=== PATIENT | female | born 1960 | race Caucasian/White ===

== ENCOUNTER 2017-01-09 08:37 | Inpatient (IN) | payer OTHER, MEDICARE ==
[2016-12-28 12:58] VITALS: BMI 32.0
--- NOTE | 2016-12-28 13:33 | PAT Medication Instructions ---
Service Date Dec 28, 2016. Current Home Medication List Atenolol (Tenormin), 25 MG PO QAM Celecoxib (CeleBREX), 200 MG PO QAM Cholecalciferol (Vitamin D3), 1 TAB PO QAM Fluoxetine (Prozac), 20 MG PO QAM Hydrocodone/Acetaminophen 10MG/325MG (Dana 10MG/325MG), 1 TAB PO Q4H PRN for Pain Medication Instructions For Your Scheduled Surgery - Hold the following medications the morning of surgery: Celecoxib (CeleBREX), 200 MG PO QAM (otherwise okay to continue per surgeon) Cholecalciferol (Vitamin D3), 1 TAB PO QAM - Take the following medications the morning of surgery with a sip of water OTHERWISE NOTHING TO EAT OR DRINK AFTER MIDNIGHT: Atenolol (Tenormin), 25 MG PO QAM Hydrocodone/Acetaminophen 10MG/325MG (Dana 10MG/325MG), 1 TAB PO Q4H PRN for Pain (may take if needed up to 4 hours prior to surgery if needed) Fluoxetine (Prozac), 20 MG PO QAM - Take the following medications as scheduled the night before surgery: Hydrocodone/Acetaminophen 10MG/325MG (Dana 10MG/325MG), 1 TAB PO Q4H PRN for Pain If you have any questions please call us at [phone] or [phone] or [phone]
[2016-12-28 14:39] LABS: BASO % 0.3 %; BASO ABS # 0.02 K/uL (0-0.2); COMPLETE YES; EOS % 0.9 %; HEMATOCRIT 42.4 % (37-47); LYMPH % 33.2 %; LYMPH ABS # 2.56 K/uL (1.2-3.4); MEAN CELL VOLUME 91.4 fL (80-100); MEAN CORPUSCULAR HEMOGLOBIN 30.8 pg (25-34); MEAN CORPUSCULAR HGB CONC 33.7 g/dl (32-36); MEAN PLATELET VOLUME 9.6 fL (7.4-10.4); MONO % 7.3 %; NEUT % 58.3 %; PLATELET COUNT 275 K/uL (130-400); RED BLOOD COUNT 4.64 M/uL (4.2-5.4); WHITE BLOOD COUNT 7.72 K/uL (4.8-10.8)
[2016-12-28 14:58] LABS: URINE APPEARANCE CLEAR (CLEAR); URINE COLOR DK YELLOW; URINE EPITHELIAL CELL AUTO >30 /lpf (0-5); URINE NITRITE NEG (NEG); URINE SPECIFIC GRAVITY 1.042 (1.000-1.030); UROBILINOGEN NEG (NEG); ZZUR CULT IF INDIC CLEAN CATCH NO
[2016-12-28 15:00] LABS: PARTIAL THROMBOPLASTIN RATIO 1.1; PROTHROMBIN TIME (PATIENT) 10.2 SECONDS (9.0-12.0)
[2016-12-28 15:08] LABS: MANUAL MICROSCOPIC REQUIRED? NO; REVIEW REQ? YES
[2016-12-28 15:10] LABS: URINE BILIRUBIN NEG (NEG)
[2016-12-28 15:12] LABS: BUN/CREATININE RATIO 23.8 (10-20); CREATININE 1.1 mg/dl (0.60-1.20); POTASSIUM 3.9 mmol/L (3.5-5.1)
[2016-12-28 16:07] LABS: URINE MUCUS PRESENT (NONE PRSENT)
[2016-12-28 16:47] LABS: LYME DISEASE AB IGM NEG (NEG)
[2016-12-28 16:51] LABS: LYME DISEASE AB IGG NEG (NEG)
--- NOTE | 2016-12-28 17:18 | DIAGNOSTIC IMAGING REPORT ---
CHEST PREADMISSION(PA/LAT) CLINICAL HISTORY: Preoperative evaluation COMPARISON STUDY: Chest radiograph September 12, 2012. FINDINGS: Lung volumes are normal. There is no pneumothorax or pleural effusion. There is no evidence of pulmonary edema. Cardiac size is at the upper limits of normal. Lumbar spine fusion hardware is incidentally noted. There are cholecystectomy clips. IMPRESSION: No acute cardiopulmonary findings. Electronically signed by: Guevara Jiang M.D. 12/28/2016 5:17 PM Dictated Date/Time: 12/28/2016 5:11 PM
[2016-12-29 05:51] LABS: ESTIMATED AVERAGE GLUCOSE 126 mg/dl; HA1C FLAG Normal (Normal)
--- NOTE | 2017-01-08 10:22 | History and Physical ---
History & Physical Date & Time of Service: Jan 08, 2017 at 10:17 Chief Complaint: Left Shoulder Degenerative Joint Disease Primary Care Physician: Kevin Elizondo D.O. History of Present Illness Source: patient Chronic left shoulder pain, failed conservative treatment. 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 Social History Smoking Status: Never Smoker Alcohol Use: occasionally Drug Use: none Immunizations History of Influenza Vaccine: Yes History of Tetanus Vaccine?: Yes History of Pneumococcal: No History of Hepatitis B Vaccine: Yes Allergies Coded Allergies: Hydromorphone (Unverified Allergy, Intermediate, itchy, vomiting, 12/28/16) Oxycodone (Verified Allergy, Unknown, ITCHING, 12/28/16) Home Medications Scheduled Atenolol (Tenormin), 25 MG PO QAM Celecoxib (CeleBREX), 200 MG PO QAM Cholecalciferol (Vitamin D3), 1 TAB PO QAM Fluoxetine (Prozac), 20 MG PO QAM Scheduled PRN Hydrocodone/Acetaminophen 10MG/325MG ([place] 10MG/325MG), 1 TAB PO Q4H PRN for Pain Review of Systems Musculoskeletal: + joint pain, + muscle pain (ledt shoulder pain ) Physical Exam General Appearance: WD/WN, no apparent distress Head: normocephalic, atraumatic Eyes: normal inspection, PERRL, EOMI ENT: normal ENT inspection Respiratory/Chest: lungs clear Cardiovascular: regular rate, rhythm Abdomen/GI: normal bowel sounds, non tender Left shoulder FROM w pain, + crepitation, 4+/5 strength, AC tenderness, N/V + Impression Assessment and Plan Left shoulder OA Advanced Directives Existing Living Will: No Existing Power of [employer] Manager: No Note Plan for Left shoulder TSA, DCE.
[~2017-01-09] VITALS: Ht 162.6 cm; Wt 85.0 kg
[~2017-01-09 08:37] MED LIST: ACETAMINOPHEN 500 MG TAB PO SCH; ATEN-173 PO; CEFAZOLIN 2000 MG/60 ML D5W 60 ML IV SCH; CHOL20007 PO; CLB/200 PO; CeleBREX 200 MG CAP PO SCH; DEXAMETHASONE 4 MG TAB PO SCH; DEXAMETHASONE SOD INJ 4 MG/ML VIAL ONE; FAMOTIDINE 20 MG TAB PO SCH; FENTANYL CITRATE INJ 50 MCG/1 ML 2 ML VIAL ONE; FLUO20CA35 PO; GABAPENTIN 300 MG CAP PO SCH; GLYCOPYRROLATE INJ 0.2 MG/ML VIAL ONE; HYDR-4079 PO; LACTATED RINGER'S 1000ML 1,000 ML IV SCH; LACTATED RINGER'S 1000ML IV SCH; LIDOCAINE HCL 2% 2 ML VIAL (20MG/ML) ONE; METOCLOPRAMIDE HCL 10 MG TAB PO SCH; MIDAZOLAM HCL 1 MG/ML 2ML VIAL ONE; NEOSTIGMINE METHYLSULFATE 5 MG/5 ML SYR ONE; ONDANSETRON INJ 2 MG/ML 2 ML VIAL ONE; PROPOFOL IV EMULSION 10 MG/ML 20 ML VIAL IV ONE; ROCURONIUM BROMIDE 10 MG/ML 5 ML VIAL ONE; ROPIVACAINE 0.5% 5 MG/ML 30 ML VIAL ONE
[2017-01-09 08:58] VITALS: BP 135/90; PULSE 57; TEMP 36.6; Ht 162.6 cm; Wt 85.0 kg
--- NOTE | 2017-01-09 09:17 | History & Physical Bridge Note ---
H&P Re-Evaluation Bridge Note: I have examined the patient, reviewed the History & Physical and in the interval since the performance of the History & Physical I have noted the following changes of clinical significance: No changes noted
[2017-01-09] MEDS ORDERED: ONDANSETRON INJ 2 MG/ML 2 ML VIAL ONE (09:52)
[2017-01-09] MEDS ORDERED: ROCURONIUM BROMIDE 10 MG/ML 5 ML VIAL ONE ×2 (09:52→12:36)
[2017-01-09] MEDS ORDERED: LIDOCAINE HCL 2% 2 ML VIAL (20MG/ML) ONE (09:52)
[2017-01-09] MEDS ORDERED: GLYCOPYRROLATE INJ 0.2 MG/ML VIAL ONE ×2 (09:52→12:26)
[2017-01-09] MEDS ORDERED: PROPOFOL IV EMULSION 10 MG/ML 20 ML VIAL IV ONE (09:52)
[2017-01-09] MEDS ORDERED: MIDAZOLAM HCL 1 MG/ML 2ML VIAL ONE (09:52)
[2017-01-09] MEDS ORDERED: DEXAMETHASONE SOD INJ 4 MG/ML VIAL ONE (09:52)
[2017-01-09] MEDS ORDERED: FENTANYL CITRATE INJ 50 MCG/1 ML 2 ML VIAL ONE ×3 (09:52→15:06)
[2017-01-09] MEDS ORDERED: NEOSTIGMINE METHYLSULFATE 5 MG/5 ML SYR ONE (09:52)
[2017-01-09] MEDS ORDERED: HYDROmorphone INJ 2 MG/ML SYR/VIAL IV PRN ×2 (10:00→11:00)
[2017-01-09] MEDS ORDERED: EpHEDrine SULFATE INJ 50 MG/ML AMP IV PRN ×2 (10:00→11:00)
[2017-01-09] MEDS ORDERED: PHENYLEPHRINE 100MCG/ML 5ML SYR IV PRN ×2 (10:00→11:00)
[2017-01-09] MEDS ORDERED: ONDANSETRON INJ 2 MG/ML 2 ML VIAL IV PRN ×3 (10:00→14:45)
[2017-01-09] MEDS ORDERED: ATROPINE SULFATE 0.1 MG/ML 5ML SYR IV PRN ×2 (10:00→11:00)
[2017-01-09] MEDS ORDERED: BACITRACIN 50000 UNIT VIAL ONE (10:55)
[2017-01-09] MEDS ORDERED: EpINEphrine INJ 1MG/ML AMP 1 MG/ML AMP ONE (10:55)
[2017-01-09] MEDS ORDERED: EpHEDrine SULFATE 50MG/5ML SYR ONE (12:31)
[2017-01-09] MEDS ORDERED: SODIUM CHLORIDE 0.9% INJ 10 ML VIAL ONE (12:55)
[2017-01-09] MEDS ORDERED: EpHEDrine SULFATE INJ 50 MG/ML AMP ONE (12:55)
[2017-01-09] MEDS: EpINEphrine HCL INJ 1 MG/ML 5ML SYRINGE ONE ×2 (12:59→13:16)
[2017-01-09] MEDS ORDERED: HYDROCODONE/ACETAMI 10/325 TAB PO PRN (14:45)
[2017-01-09] MEDS ORDERED: SOD PHOSPHATE/SOD BIPHOSPHATE ENEMA 132 ML BTL PR PRN (14:45)
[2017-01-09] MEDS ORDERED: MoRPHine SULFATE 2 MG/ML CARP IV PRN ×2 (14:45→15:30)
[2017-01-09] MEDS ORDERED: BISACODYL 10 MG SUPP PR PRN (14:45)
[2017-01-09] MEDS ORDERED: ZOLPIDEM TARTRATE 5 MG TAB PO PRN (14:45)
[2017-01-09] MEDS ORDERED: NALOXONE HCL 0.4 MG/1 ML VIAL/CARP IV PRN (14:45)
[2017-01-09] MEDS ORDERED: MAGNESIUM HYDROXIDE SUSP 30 ML UDC PO PRN (14:45)
[2017-01-09] MEDS ORDERED: NURSING VERBAL MED ORDER ONE (15:15)
--- NOTE | 2017-01-09 15:22 | DIAGNOSTIC IMAGING REPORT ---
LEFT SHOULDER MIN 2 VIEWS ROUTINE HISTORY:56 yearsFemale[age] shoulder surgery COMPARISON: Chest radiograph 12/28/2016 TECHNIQUE: Portable neutral and Y views of the left shoulder were obtained postoperatively FINDINGS: Status post left shoulder hemiarthroplasty. Skin rashel overlie the surgical site. There has been partial resection of the distal left clavicle. Expected postsurgical soft tissue swelling and deep tissue air seen about the shoulder. No periprosthetic fracture or retained radiopaque foreign body identified. IMPRESSION: Status post left shoulder arthroplasty and distal left clavicular resection. The above report was generated using voice recognition software. It may contain grammatical, syntax or spelling errors. Electronically signed by: Honorio Gill M.D. 01/09/2017 3:21 PM Dictated Date/Time: 01/09/2017 3:19 PM
[2017-01-09] MEDS ORDERED: FENTANYL CITRATE INJ 50 MCG/1 ML 2 ML VIAL IV PRN (15:30)
--- NOTE | 2017-01-09 15:43 | Anesthesiology Progress Note ---
Anesthesia Post Op Note Date & Time Jan 09, 2017 at 15:42 Vital Signs Pain Intensity: 4 Vital Signs Past 12 Hours Date Time Temp Pulse Resp B/P (MAP) Pulse Ox O2 Delivery O2 Flow Rate FiO2 01/09/17 15:35 36.6 69 16 126/66 94 Nasal Cannula 2 01/09/17 15:25 69 16 96/66 94 Nasal Cannula 2 01/09/17 15:15 66 18 112/73 97 Mask 8 01/09/17 15:05 66 17 123/66 97 Mask 8 01/09/17 14:55 68 15 115/68 95 Mask 8 01/09/17 14:46 36.2 78 16 119/65 95 Mask 8 01/09/17 08:58 36.6 57 18 135/90 Room Air Notes Mental Status: alert / awake / arousable, participated in evaluation Pt Amnestic to Procedure: Yes Nausea / Vomiting: adequately controlled Pain: adequately controlled Airway Patency, RR, SpO2: stable & adequate BP & HR: stable & adequate Hydration State: stable & adequate Anesthetic Complications: no major complications apparent
[2017-01-09 16:22] VITALS: BP 111/67; PULSE 65; TEMP 36.6; O2SAT 97
[2017-01-09] MEDS: D5W AND 1/2NSS + 20MEQ KCL 1,000 ML IV SCH (16:32)
[2017-01-09 16:57] VITALS: BP 108/66; PULSE 76; TEMP 36.8; O2SAT 95
--- NOTE | 2017-01-09 17:39 | [facility] Operative Report ---
Operative Report Operative Date Jan 09, 2017. Pre-Operative Diagnosis left shoulder osteoarthritis,glenohumeral and acj Post-Operative Diagnosis same,biceps tendinopathy and bicipital groove spurs Procedure(s) Performed left total shoulder replacement and distal clavicle excision Surgeon Dr. Leo Rizvi [employer] Tester Surgeon(s) Dieudonne Villa PA-C Estimated Blood Loss 50ML Findings End-stage glenohumeral osteoarthritis with large osteophytes bicipital groove bone spurs biceps tendinopathy intact rotator cuff oblique acromioclavicular joint with arthritis and some eccentric wear posterior glenoid. Specimens A. humeral head B. Distal Clavicle Drains 2 hemovac Anesthesia general and regional Complication(s) None Disposition Recovery Room / PACU Indications End-stage osteoarthritis shoulder left Description of Procedure The patient was taken to the operating room and anesthetized under a general and regional block anesthesia. A towel roll was placed under the medial border of the scapula of the left shoulder. The patient's head was placed on a foam headrest and protective eyewear was placed and the extremities were well padded. The arm was draped free in order to manipulate the shoulder as necessary. The shoulder exam demonstrated the patient had decreased range of motion and [id number] crepitation range of motion was 130 forward elevation 30 external rotation and 70 abduction. The shoulder was sterilely prepped and draped in the usual sterile fashion. An anterior deltopectoral approach was performed. A longitudinal incision was made in the interval. The skin was incised sharply and subcutaneous tissues dissected down to the fascia. The cephalic vein was identified and retracted laterally with the deltoid. Any crossing veins were tied off with silk ties and divided. The clavipectoral fascia was divided at the lateral margin of the conjoined tendon and divided up to the level of the coracoacromial ligament which was preserved. The upper 1 cm of the pectoralis was released for inferior exposure. The biceps tendon findings demonstrated significant biceps tenosynovitis with large bicipital groove bone spurs. The rotator cuff tendon findings demonstrated an intact rotator cuff . The circumflex vessels were identified and tied off with silk ties and divided laterally. The fibers and subscapularis were split longitudinally at the level of the circumflex vessels down to the capsule and then reflected off the inferior capsule using a Kitner elevator. The axillary nerve was identified with a tug test and protected with a blunt Tawny retractor. The rotator interval was opened up and extended down to the glenoid. The biceps tendon was identified and tenodesed to the pectoralis tendon with [id number] #2 FiberWire sutures in the proximal biceps was resected. The subscapularis tendon was taken down with a trans-tendinous incision leaving a cuff of tissue for repair on the lesser tuberosity. The incision was carried down to the tendon and the capsule and a #1 Vicryl suture was placed into the free end of the subscapularis tendon. The capsule was subperiosteally dissected off the inferior neck of the humerus exposing the humeral osteophytes which demonstrated a large inferior humeral osteophyte extending somewhat anteriorly and posteriorly . The osteophytes were excised with an artist chisel and a rongeur. The capsular release along the inferior neck of the humerus was completed. The humerus was then retracted posterior to the glenoid with a Fukuda retractor. The main to the biceps tendon and labrum was resected. The glenoid findings demonstrated partially biconcave glenoid with eccentric erosion and some anterior cartilage remaining. This was curetted down to the bone so we could visualize the appropriate version for placement of the component.. I did an anterior inferior and posterior inferior release with electrocautery on bone and a Reyes elevator with the axillary nerve continuing to be protected with the blunt Hohmann retractor inferiorly. When the releases were completed and the humeral head was exposed with some extension and external rotation and in anatomic head cut was made using the oscillating saw. The humeral head findings demonstrated eburnated bone grade 4 articular surface.. The cut humeral head was then retracted posterior to the glenoid with Hohmann retractors and Bankart retractor placed anteriorly. A central drill hole was made into the glenoid. The glenoid was sized for a size 48 mm Affinity cortiloc component from [employer].. The [employer] ascend flex total shoulder arthroplasty system was used and the affinity glenoid component was chosen. The glenoid was reamed and the central drill widened and the guide for the peg holes was placed in the peg holes were drilled and a trial component was placed with a tight fit. The trial was removed and the glenoid was irrigated with pulsatile lavage antibiotic solution and the drill holes were dried and packed with epinephrine-soaked tampons for hemostasis. The [place] G cement was vacuum mixed. The final component was cemented into position and held in position with pressure until the cement cured. Attention was taken to the humeral preparation. A centralizing awl was used in the canal followed by broaches up to a size 4B standard stem . This had the appropriate fit and fill. A size 50 x 19 high offset millimeter humeral head was then used. It was rotated into appropriate position. A trial reduction was performed and the shoulder was stable. The trial was removed and the humerus and canal were irrigated with antibiotic solution with bacitracin. 3 drill holes were made into the hard bone in the bicipital groove lateral to the lesser tuberosity and 3 #5 FiberWire transosseous sutures were placed for repair of the subscapularis. After further irrigation of the canal and the final components were assembled. The final components were the ascend flex 4B standard stem the 50 mm x 19 eccentric offset head. . The implant was then impacted into the humerus with a tight press-fit. The humerus was reduced to the glenoid and stability verified. The subscapularis was repaired with the #5 FiberWire sutures in a Cosme-Frankie suture technique and lateral row fixation with figure- of-eight #2 FiberWire in the soft tissue. The rotator interval was closed and maximal external rotation. The pectoralis was then closed with [id number] #2 FiberWire suture.A transverse incision was made across the acromioclavicular joint. Subperiosteal dissection was performed to expose 1 cm distal clavicle. Findings at the acromioclavicular joint were an oblique acromioclavicular joint with moderately severe osteoarthritis and degeneration of the meniscus. Retractors were placed. 1 cm of distal clavicle was resected with an oscillating saw. The degenerative meniscus was excised After irrigation with antibiotic solution the deltotrapezial fascia was repaired with [id number] #2 FiberWire sutures subcutaneous tissues were closed with interrupted 2-0 Vicryl and the skin was closed with rashel. 2 Hemovac drains were placed into the sub- deltopectoral incision. The deltopectoral interval was closed with [id number] #1 Vicryl sutures. The subcutaneous tissues were closed with interrupted 2-0 Vicryl and the skin was closed with rashel and a sterile dressing was applied. The patient tolerated the procedure well. Dieudonne AGARWAL , My physician under water assistant, assisted in soft tissue retraction instrument management suture management and assisted in the subcutaneous and skin closure and will participate in the postoperative care the patient. I attest to the content of the Intraoperative Record and any orders documented therein. Any exceptions are noted below.
[2017-01-09 17:50] VITALS: BP 107/65; PULSE 88; TEMP 36.9; O2SAT 95
[2017-01-09 18:49] VITALS: BP 102/65; PULSE 89; TEMP 37.1; O2SAT 94
--- NOTE | 2017-01-09 19:05 | Medical Consult ---
Consultation Date of Consultation: Jan 09, 2017. Attending Physician: Eleazar Rizvi M.D. Reason for Consultation: Medical Management History of Present Illness Ms. Shearer is a 56 y/o female with PMHx of sinus tachycardia managed with Atenolol who is S/P L Total Shoulder Replacement and Distal Clavicle Excision on 01/09. Patient is resting comfortably in bed and verbalizes no complaints. Reports continued numbness in hand due to nerve block. Tolerating a diet without issue. She has no history of cardiac issues except for the tachycardia. She denies H/O MS, CHF, Respiratory Disorders, DVT/PE. She reports that on previous surgeries it is not uncommon for her BPs to be low-low normal and will normally last 5-7 days after surgery due to anesthesia. She denies fever/chills , CP, SOB, N/V, abdominal pain, dysuria, constipation/diarrhea. Past Medical/Surgical History 1. Sinus Tachycardia 2. Depression/Anxiety 3. S/P Bilateral Total Knee Arthroplasty 4. S/P Appendectomy Family History Patient reports no known family medical history. Social History Smoking Status: Never Smoker Smokeless Tobacco Use: No Alcohol Use: occasionally Drug Use: none Allergies Coded Allergies: Hydromorphone (Unverified Allergy, Intermediate, itchy, vomiting, 01/09/17) Oxycodone (Verified Allergy, Unknown, ITCHING, 01/09/17) Current Inpatient Medications Current Inpatient Medications Medications (Trade) Dose Ordered Sig/Bertin Route Start Time Stop Time Status Last Admin Dose Admin Atenolol (Tenormin Tab) 25 mg QAM PO 01/10/17 09:00 02/09/17 08:59 Fluoxetine HCl (Prozac Cap) 20 mg QAM PO 01/10/17 09:00 02/09/17 08:59 Acetaminophen/ Hydrocodone Bitart ([place] 10/325 Tab) 1 tab Q4H PRN PO 01/09/17 14:45 01/23/17 14:44 Cholecalciferol (Vitamin D Tab) 2,000 inter.unit QAM PO 01/10/17 09:00 02/09/17 08:59 Diphenhydramine HCl (Benadryl Cap) 25 mg Q8 PRN PO 01/09/17 14:45 02/08/17 14:44 Zolpidem Tartrate (Ambien Tab) 5 mg HSZ PRN PO 01/09/17 14:45 02/08/17 14:44 Ondansetron HCl (Zofran Inj) 4 mg Q6H PRN IV 01/09/17 14:45 02/08/17 14:44 Pantoprazole Sodium (Protonix Tab) 40 mg QAM PO 01/10/17 09:00 02/09/17 08:59 Potassium Chloride/Dextrose/ Sod Cl 1,000 ml @ 100 mls/hr Q10H IV 01/09/17 16:30 01/10/17 16:29 01/09/17 16:32 100 MLS/HR Acetaminophen (Tylenol Tab) 1,000 mg Q8 PO 01/09/17 22:00 02/08/17 21:59 Naloxone HCl (Narcan Inj) 0.1 mg Q2M PRN IV 01/09/17 14:45 02/08/17 14:44 Magnesium Hydroxide (Milk Of Magnesia Susp) 30 ml Q6H PRN PO 01/09/17 14:45 02/08/17 14:44 Bisacodyl (Dulcolax Supp) 10 mg DAILY PRN TN 01/09/17 14:45 02/08/17 14:44 Sodium Biphosphate/ Sodium Phosphate (Fleet Enema) 132 ml DAILY PRN TN 01/09/17 14:45 02/08/17 14:44 Docusate Sodium (coLACE CAP) 100 mg BID PO 01/09/17 21:00 02/08/17 20:59 Multivitamins (Multivitamin Tab) 1 tab DAILY PO 01/10/17 09:00 02/09/17 08:59 Cefazolin Sodium 2000 mg/Dextrose 60 ml @ 100 mls/hr Q8H IV 01/09/17 20:00 01/10/17 04:35 Morphine Sulfate (Oramorph Sr Tab) 30 mg Q12 PO 01/09/17 21:00 01/23/17 20:59 Morphine Sulfate (MoRPHine SULFATE INJ) 2 mg Q2H PRN IV 01/09/17 15:30 01/23/17 15:29 Morphine Sulfate (MoRPHine SULFATE INJ) 4 mg Q2H PRN IV 01/09/17 15:30 01/23/17 15:29 Fentanyl Citrate (Fentanyl Inj) 50 mcg Q5M PRN IV 01/09/17 15:30 01/09/17 20:30 Review of Systems Constitutional: No fever, No chills Eyes: No worsening of vision ENT: No nasal symptoms, No sore throat, No trouble swallowing Respiratory: No cough, No shortness of breath Cardiovascular: No chest pain, No palpitations Abdomen: No pain, No nausea, No vomiting, No diarrhea, No constipation, No GI bleeding Musculoskeletal: No swelling, No calf pain Genitourinary - Female: No dysuria Neurologic: + numbness/tingling (due to nerve block) Hematologic / Lymphatic: No abnormal bleeding/bruising, No clotting problems Integumentary: No rash Physical Exam Date Time Temp Pulse Resp B/P (MAP) Pulse Ox O2 Delivery O2 Flow Rate FiO2 01/09/17 17:50 36.9 88 16 107/65 (79) 95 Nasal Cannula 2.0 01/09/17 16:57 36.8 76 16 108/66 (80) 95 Nasal Cannula 01/09/17 16:22 36.6 65 16 111/67 (82) 97 Nasal Cannula 2.0 01/09/17 16:12 94 Nasal Cannula 2.0 01/09/17 16:00 Nasal Cannula 2.0 01/09/17 15:35 36.6 69 16 126/66 94 Nasal Cannula 2 01/09/17 15:25 69 16 96/66 94 Nasal Cannula 2 01/09/17 15:15 66 18 112/73 97 Mask 8 01/09/17 15:05 66 17 123/66 97 Mask 8 01/09/17 14:55 68 15 115/68 95 Mask 8 01/09/17 14:46 36.2 78 16 119/65 95 Mask 8 01/09/17 08:58 36.6 57 18 135/90 Room Air General Appearance: WD/WN, no apparent distress Head: normocephalic, atraumatic Eyes: sclerae normal ENT: hearing grossly normal Neck: supple, no JVD, trachea midline Respiratory/Chest: lungs clear, normal breath sounds, no respiratory distress, no accessory muscle use Cardiovascular: regular rate, rhythm, no gallop, no murmur Abdomen/GI: normal bowel sounds, non tender, soft Extremities/Musculoskelatal: normal capillary refill, + pertinent finding (L shoulder with drain with bloody drainage; pulses adequate; subjective sensory deficit due to nerve block) Neurologic/Psych: alert, oriented x 3 Assessment & Plan Ms. Shearer is a 56 y/o female with PMHx of sinus tachycardia managed with Atenolol who is S/P L Total Shoulder Replacement and Distal Clavicle Excision on 01/09. S/P L Total Shoulder Replacement with Distal Clavicle Excision on 01/[address] Rizvi: - Uncomplicated procedure - IVF, Pain Management, DVT prophylaxis, PT/OT per primary team Sinus Tachycardia: Rate Controlled - Patient with regular rate and rhythm on examination and rate controlled per vitals - Atenolol 25 mg daily - will monitor BP and implement hold parameters if necessary Low to Low-Normal BP: - Reports she normally has lower BP readings after surgery for approx. 5-7 days - stable and asymptomatic -- Lowest reading 90s/60s but normally maintaining 100s/60s Depression/Anxiety: - Prozac 20 mg daily Disposition: Per primary - Monitor BPs overnight and if becomes symptomatic a fluid bolus would likely benefit. If no events overnight, can likely sign off tomorrow Full code Resident Physician Supervision Note: Pt seen/examined independently. I discussed the case with the PA and agree with the findings and plan as documented in the note. Any exceptions or clarifications are listed here: 56 y/o F sinus tach, anxiety - post L total shoulder - recovering well - has low /normal BP at baseline OE AAO x 3 S1,2 R CTAB NT, ND, BS+ No CCE P: Pain management , IVF , PT/OT - no complications reported - med to follow pending discharge Documented By: Vishnu Oneill
[2017-01-09] MEDS: CEFAZOLIN IV 2,000 MG in DEXTROSE 5% 50ML 50 ML IV SCH (19:52)
[2017-01-09] MEDS: MoRPHine SULFATE 4 MG/ML 1 ML CARP IV PRN (20:19)
[2017-01-09] MEDS: ACETAMINOPHEN 500 MG TAB PO SCH (21:37)
[2017-01-09] MEDS: DOCUSATE SODIUM 100 MG CAP PO SCH (21:37)
[2017-01-09] MEDS: MoRPHine SULFATE CR 15 MG TAB (MS CONTIN) PO SCH (21:38)
[2017-01-09 23:00] VITALS: BP 102/64; PULSE 84; TEMP 36.9; O2SAT 94
[2017-01-10] VITALS (7 sets, daily range): BP systolic 97–137; BP diastolic 62–82; PULSE 68–85; TEMP 36.6–37; O2SAT 91–98
[2017-01-10] MEDS: D5W AND 1/2NSS + 20MEQ KCL 1,000 ML IV SCH ×2 (02:22→12:00)
[2017-01-10] MEDS: CEFAZOLIN IV 2,000 MG in DEXTROSE 5% 50ML 50 ML IV SCH (04:06)
[2017-01-10] MEDS: MoRPHine SULFATE 4 MG/ML 1 ML CARP IV PRN ×5 (04:45→20:28)
[2017-01-10] MEDS ORDERED: NURSING VERBAL MED ORDER ONE ×2 (05:30→18:30)
[2017-01-10] MEDS ORDERED: KETOROLAC TROMETHAMINE 30 MG/ML VIAL IV. STA (05:37)
[2017-01-10] MEDS ORDERED: ACETAMINOPHEN IV 1000MG/100ML IV STA (05:38)
[2017-01-10 06:16] LABS: HEMATOCRIT 37.7 % (37-47); MEAN CELL VOLUME 92.4 fL (80-100); MEAN CORPUSCULAR HEMOGLOBIN 30.9 pg (25-34); MEAN CORPUSCULAR HGB CONC 33.4 g/dl (32-36); MEAN PLATELET VOLUME 9.4 fL (7.4-10.4); PLATELET COUNT 260 K/uL (130-400); RED BLOOD COUNT 4.08 M/uL (4.2-5.4); WHITE BLOOD COUNT 11.88 K/uL (4.8-10.8)
[2017-01-10 06:49] LABS: BUN/CREATININE RATIO 8.9 (10-20); CALCIUM 8.3 mg/dl (8.5-10.1); CREATININE 0.97 mg/dl (0.60-1.20); POTASSIUM 4.1 mmol/L (3.5-5.1)
[2017-01-10] MEDS: MULTIVITAMIN TAB PO SCH (08:17)
[2017-01-10] MEDS: MoRPHine SULFATE CR 15 MG TAB (MS CONTIN) PO SCH ×2 (08:17→21:42)
[2017-01-10] MEDS: CHOLECALCIFEROL 1000 INTER.UNIT TAB PO SCH (08:17)
[2017-01-10] MEDS: DOCUSATE SODIUM 100 MG CAP PO SCH ×2 (08:18→21:43)
[2017-01-10] MEDS: PANTOprazole SOD 40 MG TAB PO SCH (08:18)
[2017-01-10] MEDS: FLUOXETINE HCL 20 MG CAP PO SCH (08:18)
--- NOTE | 2017-01-10 09:56 | Anesthesiology Progress Note ---
Anesthesia Post Op Note Date & Time Jan 10, 2017 at 09:55 Vital Signs Pain Intensity: 7.0 Vital Signs Past 12 Hours Date Time Temp Pulse Resp B/P (MAP) Pulse Ox O2 Delivery O2 Flow Rate FiO2 01/10/17 08:16 98 Room Air 01/10/17 08:00 36.6 72 18 132/82 (99) 98 Room Air 01/10/17 07:30 Room Air 01/10/17 03:55 37.0 85 16 97/62 (74) 92 Room Air 01/09/17 23:20 Room Air 01/09/17 23:00 36.9 84 16 102/64 (77) 94 Room Air Notes Mental Status: alert / awake / arousable, participated in evaluation Pt Amnestic to Procedure: Yes Nausea / Vomiting: adequately controlled Pain: adequately controlled Airway Patency, RR, SpO2: stable & adequate BP & HR: stable & adequate Hydration State: stable & adequate Anesthetic Complications: no major complications apparent
[2017-01-10] MEDS: ACETAMINOPHEN 500 MG TAB PO SCH ×2 (10:01→21:43)
[2017-01-10] MEDS: HYDROCODONE/ACETAMI 10/325 TAB PO PRN ×2 (10:52→22:22)
--- NOTE | 2017-01-10 11:07 | Progress Note ---
Subjective Date of Service: Jan 10, 2017. Subjective Pt evaluation today including: conversation w/ patient, physical exam, chart review, lab review, review of studies, review of inpatient medication list Resting comfortably in bed States pain controlled No N/V No chest pain, sob, or palpitations Review of Systems Constitutional: No fever, No chills, No sweats, No weight loss, No weakness Respiratory: No cough, No sputum, No wheezing, No shortness of breath, No dyspnea on exertion Cardiac: No chest pain, No orthopnea, No PND, No edema, No claudication Abdomen: No pain, No nausea, No vomiting, No diarrhea, No constipation Musculoskeletal: No joint pain, No muscle pain Female : No dysuria, No urinary frequency, No hematuria, No incontinence Neurologic: + numbness/tingling, No memory loss, No paralysis, No weakness Psychiatric: No depression symptoms, No anhedonism, No anxiety, No insomnia Endo: No fatigue, No excessive thirst Skin: No rash, No itch Objective Vital Signs Date Time Temp Pulse Resp B/P (MAP) Pulse Ox O2 Delivery O2 Flow Rate FiO2 01/10/17 10:07 72 98 01/10/17 08:16 98 Room Air 01/10/17 08:00 36.6 72 18 132/82 (99) 98 Room Air 01/10/17 07:30 Room Air 01/10/17 03:55 37.0 85 16 97/62 (74) 92 Room Air 01/09/17 23:20 Room Air 01/09/17 23:00 36.9 84 16 102/64 (77) 94 Room Air 01/09/17 18:49 37.1 89 16 102/65 (77) 94 Nasal Cannula 2.0 01/09/17 17:50 36.9 88 16 107/65 (79) 95 Nasal Cannula 2.0 01/09/17 16:57 36.8 76 16 108/66 (80) 95 Nasal Cannula 01/09/17 16:22 36.6 65 16 111/67 (82) 97 Nasal Cannula 2.0 01/09/17 16:12 94 Nasal Cannula 2.0 01/09/17 16:00 Nasal Cannula 2.0 01/09/17 15:35 36.6 69 16 126/66 94 Nasal Cannula 2 01/09/17 15:25 69 16 96/66 94 Nasal Cannula 2 01/09/17 15:15 66 18 112/73 97 Mask 8 01/09/17 15:05 66 17 123/66 97 Mask 8 01/09/17 14:55 68 15 115/68 95 Mask 8 01/09/17 14:46 36.2 78 16 119/65 95 Mask 8 Physical Exam General Appearance: WD/WN, no apparent distress Eyes: normal inspection, PERRL, EOMI, sclerae normal Neck: supple, no adenopathy, thyroid normal, no JVD Respiratory/Chest: chest non-tender, lungs clear, normal breath sounds, no respiratory distress Cardiovascular: regular rate, rhythm, no edema, no gallop, no JVD Abdomen: normal bowel sounds, non tender, soft, no organomegaly Neurologic/Psychiatric: no motor/sensory deficits, alert, normal mood/affect, oriented x 3 Laboratory Results Last 24 Hours Test 01/10/17 05:07 White Blood Count 11.88 K/uL Red Blood Count 4.08 M/uL Hemoglobin 12.6 g/dL Hematocrit 37.7 % Mean Corpuscular Volume 92.4 fL Mean Corpuscular Hemoglobin 30.9 pg Mean Corpuscular Hemoglobin Concent 33.4 g/dl RDW Standard Deviation 49.5 fL RDW Coefficient of Variation 14.5 % Platelet Count 260 K/uL Mean Platelet Volume 9.4 fL Sodium Level 141 mmol/L Potassium Level 4.1 mmol/L Chloride Level 107 mmol/L Carbon Dioxide Level 26 mmol/L Anion Gap 8.0 mmol/L Blood Urea Nitrogen 9 mg/dl Creatinine 0.97 mg/dl Est Creatinine Clear Calc Drug Dose 66.7 ml/min Estimated GFR () 74.6 Estimated GFR (Non- 64.4 BUN/Creatinine Ratio 8.9 Random Glucose 143 mg/dl Calcium Level 8.3 mg/dl Hepatitis C Antibody Screen NEG Assessment and Plan Ms. Shearer is a 56 y/o female with PMHx of sinus tachycardia managed with Atenolol who is S/P L Total Shoulder Replacement and Distal Clavicle Excision on 01/09. S/P L Total Shoulder Replacement with Distal Clavicle Excision on 01/[address] Rizvi: - POD#1, - No acute blood loss - Hemodynamically stable - Pain managed with norco 10/325 2 tabs q 4hrs PRN pain - DVT and PT/OT per primary team Sinus Tachycardia: Resolved - Likely postop related vs dehydration - Patient with regular rate and rhythm on examination and rate controlled per vitals - Atenolol 25 mg daily - will monitor BP and implement hold parameters if necessary Depression/Anxiety: stable - Continue Prozac 20 mg daily Sign off patient, thank you or the consultation
--- NOTE | 2017-01-10 11:12 | Orthopedic Progress Note ---
Orthopedic Progress Note Date of Service Jan 10, 2017. Subjective Post OP Day: 1 Reports: feeling well, pain controlled w PO medications, Denies: complaints, chest pain, SOB, nausea / vomiting, light headedness Objective N/V intact, capillary refill less than 2 sec., dressing C/D/I, A&O x3 Sling in tact, Fingers mobile. Date Time Temp Pulse Resp B/P (MAP) Pulse Ox O2 Delivery O2 Flow Rate FiO2 01/10/17 10:07 72 98 01/10/17 08:16 98 Room Air 01/10/17 08:00 36.6 72 18 132/82 (99) 98 Room Air 01/10/17 07:30 Room Air 01/10/17 03:55 37.0 85 16 97/62 (74) 92 Room Air 01/09/17 23:20 Room Air 01/09/17 23:00 36.9 84 16 102/64 (77) 94 Room Air 01/09/17 18:49 37.1 89 16 102/65 (77) 94 Nasal Cannula 2.0 01/09/17 17:50 36.9 88 16 107/65 (79) 95 Nasal Cannula 2.0 01/09/17 16:57 36.8 76 16 108/66 (80) 95 Nasal Cannula 01/09/17 16:22 36.6 65 16 111/67 (82) 97 Nasal Cannula 2.0 01/09/17 16:12 94 Nasal Cannula 2.0 01/09/17 16:00 Nasal Cannula 2.0 01/09/17 15:35 36.6 69 16 126/66 94 Nasal Cannula 2 01/09/17 15:25 69 16 96/66 94 Nasal Cannula 2 01/09/17 15:15 66 18 112/73 97 Mask 8 01/09/17 15:05 66 17 123/66 97 Mask 8 01/09/17 14:55 68 15 115/68 95 Mask 8 01/09/17 14:46 36.2 78 16 119/65 95 Mask 8 Laboratory Results 24 Hours: Test 01/10/17 05:07 Hematocrit 37.7 % Hemoglobin 12.6 g/dL Assessment & Plan Assessment: POD #1, TSA, DCE Plan: PT/ OT D/C planning- Home w OPPT As per medicine. Inhouse Planning Pain Management: [place], Morphine, PO Tylenol DVT Prophylaxis: SCDs Discharge Planning Discharge Planning: home with oppt Pain Management: [place], Morphine Therapy: Physical Therapy, Occupational Therapy
[2017-01-11] MEDS: MoRPHine SULFATE 4 MG/ML 1 ML CARP IV PRN (01:03)
[2017-01-11] MEDS: HYDROCODONE/ACETAMI 10/325 TAB PO PRN ×3 (03:18→11:31)
[2017-01-11] MEDS: ACETAMINOPHEN 500 MG TAB PO SCH ×2 (05:34→07:20)
[2017-01-11 05:45] LABS: HEMATOCRIT 35.5 % (37-47); MEAN CELL VOLUME 93.9 fL (80-100); MEAN CORPUSCULAR HEMOGLOBIN 34.1 pg (25-34); MEAN CORPUSCULAR HGB CONC 36.3 g/dl (32-36); MEAN PLATELET VOLUME 8.9 fL (7.4-10.4); PLATELET COUNT 231 K/uL (130-400); RED BLOOD COUNT 3.78 M/uL (4.2-5.4); WHITE BLOOD COUNT 10.14 K/uL (4.8-10.8)
[2017-01-11 06:13] LABS: BUN/CREATININE RATIO 12.8 (10-20); CALCIUM 8.3 mg/dl (8.5-10.1); CREATININE 0.8 mg/dl (0.60-1.20); POTASSIUM 4.2 mmol/L (3.5-5.1)
[2017-01-11 06:37] VITALS: BP 122/80; PULSE 74; TEMP 36.9; O2SAT 92
[2017-01-11] MEDS: PANTOprazole SOD 40 MG TAB PO SCH (07:18)
[2017-01-11] MEDS: DOCUSATE SODIUM 100 MG CAP PO SCH (07:18)
[2017-01-11] MEDS: MULTIVITAMIN TAB PO SCH (07:18)
[2017-01-11] MEDS: CHOLECALCIFEROL 1000 INTER.UNIT TAB PO SCH (07:19)
[2017-01-11] MEDS: FLUOXETINE HCL 20 MG CAP PO SCH (07:19)
[2017-01-11] MEDS: MoRPHine SULFATE CR 15 MG TAB (MS CONTIN) PO SCH (07:20)
[2017-01-11 08:05] VITALS: BP 142/82; PULSE 74; TEMP 36.8; O2SAT 93
--- NOTE | 2017-01-11 08:15 | Orthopedic Progress Note ---
Orthopedic Progress Note Date of Service Jan 11, 2017. Subjective Post OP Day: 2 Reports: feeling well, pain controlled w PO medications, Denies: complaints, chest pain, SOB, nausea / vomiting, light headedness, calf pain Additional Notes: states pain controlled well now on current regimine. Objective Date Time Temp Pulse Resp B/P (MAP) Pulse Ox O2 Delivery O2 Flow Rate FiO2 01/11/17 08:05 36.8 74 20 142/82 (102) 93 Room Air 01/11/17 07:13 Room Air 01/11/17 06:37 36.9 74 16 122/80 (94) 92 Room Air 01/11/17 00:00 Room Air 01/10/17 23:44 37.0 16 137/80 (99) 91 Room Air 01/10/17 16:28 36.9 69 16 118/75 (89) 93 Room Air 01/10/17 16:25 Room Air 01/10/17 11:34 36.8 68 20 136/82 (100) 97 Room Air 01/10/17 10:07 72 98 01/10/17 08:16 98 Room Air Laboratory Results 24 Hours: Test 01/11/17 05:28 Hematocrit 35.5 % Hemoglobin 12.9 g/dL Assessment & Plan Assessment: POD #2, TSA, DCE Plan: PT/ OT D/C planning- Home w OPPT today. As per medicine. Inhouse Planning Pain Management: [place], Morphine, PO Tylenol DVT Prophylaxis: SCDs Discharge Planning Discharge Planning: home with oppt Pain Management: [place], Morphine Therapy: Physical Therapy, Occupational Therapy
[2017-01-11] MEDS ORDERED: HYDR-4079 PO (08:17)
[2017-01-11] MEDS ORDERED: MRPSR15 PO (08:17)
--- NOTE | 2017-01-11 08:18 | Discharge Instructions ---
Discharge Instructions Date of Service Jan 11, 2017. Admission Reason for Admission: Left Shoulder Degenerative Joint Disease Discharge Discharge Diagnosis / Problem: Left TSA, DCE Discharge Goals Goal(s): Improve function Activity Recommendations Activity Limitations: as noted below . Instructions / Follow-Up Instructions / Follow-Up ACTIVITY RECOMMENDATIONS: SELF CARE INSTRUCTIONS AFTER TOTAL SHOULDER ARTHROPLASTY A. You may do daily exercises as taught in physical therapy while in hospital. No lifting with the operative arm. Please schedule your outpatient physical therapy appointment to begin within 2-3 days after leaving the hospital. Specific restrictions will be written on your physical therapy prescription that is provided to you. B. You are to wear your sling/immobilizer at all times EXCEPT when performing your daily exercises, participating in physical therapy and for hygiene purposes. C. You may perform dry, daily dressing changes. Please keep your incision covered. You may shower 48 hours after surgery. Do not apply soap or any ointment/ lotions directly over incision. Do not soak incision in bath tub/swimming pool. D. You may use ice as needed to operative shoulder. SPECIAL CARE INSTRUCTIONS: MEDICATION INSTRUCTIONS: *It is recommended you take Aspirin 325mg daily for four weeks post-op. VERY IMPORTANT TO READ AND REVIEW A. There are a few signs you need to watch for after you are home. Call [facility] at [phone] if you experience any of the followin. Increased severe shoulder pain. Some pain is expected especially when you exercise. 2. Increased swelling in you shoulder or arm; pain or swelling in either upper extremity. 3. Any fluid drainage from the incision. 4. Shortness of breath or chest pain. B. Please call [facility] at [phone] if you have any questions or concerns about your operation or recovery. C. Call your physician if: 1. Temperature is greater than 101 degrees (F). 2. Pain is not relieved by prescribed pain medications. 3. Increase drainage or redness from incision. 4. Unanswered questions or concerns. FOLLOW UP VISIT: Please call [facility] at [phone] to schedule a follow up appointment with Dr. Rizvi or his PA in 12-14 days from your surgery date. Current Hospital Diet Patient's current hospital diet: Regular Diet Discharge Diet Recommended Diet: Regular Diet Procedures Procedures Performed: Left Total Shoulder Arthroplasty, Distal Clavicle Excision Pending Studies Studies pending at discharge: no Laboratory Results Hemoglobin A1c Test 12/28/16 13:34 Range/Units Estimated Average Glucose 126 mg/dl Hemoglobin A1c 6.0 H 4.5-5.6 % Medical Emergencies . Who to Call and When: Medical Emergencies: If at any time you feel your situation is an emergency, please call 911 immediately. . Non-Emergent Contact Non-Emergency issues call your: Primary Care Provider . "Provider Documentation" section prepared by Dieudonne Villa. . VTE Core Measure Inpt VTE Proph given/why not?: SCD's [place] Drug Monitoring Program Search Results: patient reviewed within database, no issues identified
[2017-01-11] MEDS ORDERED: ACET-24 PO (08:21)
[2017-01-11 08:27] VITALS: O2SAT 93
[2017-01-11 08:49] VITALS: BP 142/82; PULSE 74; TEMP 36.8; O2SAT 93
== END 2017-01-11 12:15 | disposition home or self-care (01) | DRG 483 ==
LOC: C.ACU 08:37 → C.3E 09:00 → ENRESERV 15:24
PROVIDERS: ADMIT Orthopaedic Surgery Sports Medicine; ATTEND Orthopaedic Surgery Sports Medicine
PROC: 0RRK0JZ Replacement of Left Shoulder Joint with Synthetic Substitute, Open Approach (ICD-10-PCS; principal; 2017-01-09 10:30)
PROC: 0PBB0ZZ Excision of Left Clavicle, Open Approach (ICD-10-PCS; principal; 2017-01-09 10:30)
DX: M19.012 Primary osteoarthritis, left shoulder (principal); R00.0 Tachycardia, unspecified; F41.9 Anxiety disorder, unspecified; F32.9 Major depressive disorder, single episode, unspecified; R01.1 Cardiac murmur, unspecified; R00.2 Palpitations; M54.5 Low back pain; E66.9 Obesity, unspecified; I95.9 Hypotension, unspecified; Z96.653 Presence of artificial knee joint, bilateral; Z68.32 Body mass index [BMI] 32.0-32.9, adult; Z98.1 Arthrodesis status; Z79.899 Other long term (current) drug therapy; Z79.1 Long term (current) use of non-steroidal anti-inflammatories (NSAID); Z79.891 Long term (current) use of opiate analgesic